=== PATIENT | female | born 1990 | race Native Hawaiian/Other Pacific Islander ===

== ENCOUNTER 2017-08-16 11:46 | Emergency (ER) | payer OTHER ==
[2017-08-16 12:06] VITALS: RESP 18; TEMP 97.2
--- NOTE | 2017-08-16 12:11 | C.PDOC ---
History Of Present Illness 27F c/o daily headaches for the last year. she says she was seen at a "free clinic" a couple months ago and rx tramadol which she takes along with ibuprofen several times per week, helps on a little. today on the way to work, about 3 hours ago, the headache became worse than before so she came in for eval. she denies any other pmh, denies drugs etoh. Time Seen by Provider: 08/16/17 12:08 Chief Complaint (Nursing): Headache Past Medical History Vital Signs: Last Vital Signs Temp 97.2 F L 08/16/17 12:05 Pulse 69 08/16/17 12:05 Resp 18 08/16/17 12:05 BP 98/72 L 08/16/17 12:05 Pulse Ox 100 08/16/17 13:50 Family History: States: Other Other Family History: no fh of sah or aneurysm Review Of Systems Constitutional: Negative for: Fever Eyes: Negative for: Vision Change Cardiovascular: Negative for: Chest Pain Gastrointestinal: Positive for: Nausea. Negative for: Vomiting Neurological: Positive for: Headache. Negative for: Weakness, Numbness, Altered Mental Status Psych: Positive for: Other ("stress at work") Physical Exam - Physical Exam Appears: Non-toxic Head: Atraumatic Eye(s): bilateral: PERRL, EOMI Nose: No Epistaxis Neck: Supple Cardiovascular: Rhythm Regular Respiratory: No Accessory Muscle Use Neurological/Psych: Oriented x3, Normal Cranial Nerves, No Cerebellar Signs, Normal Motor, Normal Sensation, Other (no focal deficits) Gait: Steady ED Course And Treatment O2 Sat by Pulse Oximetry: 100 Medical Decision Making Medical Decision Makinpm pt reports her headache is now completely resolved and she is comfortable w dc. follow up and return precautions advised. PROCEDURE: CT HEAD WITHOUT CONTRAST. HISTORY: headache COMPARISON: None available. TECHNIQUE: Axial computed tomography images were obtained through the head/brain without intravenous contrast. Radiation dose: Total exam DLP = 1187.18 mGy-cm. This CT exam was performed using one or more of the following dose reduction techniques: Automated exposure control, adjustment of the mA and/or kV according to patient size, and/or use of iterative reconstruction technique. FINDINGS: HEMORRHAGE: No intracranial hemorrhage. BRAIN: No focal areas of abnormal attenuation seen within the substance of the brain. No obvious parenchymal nor extra-axial mass or collection. No evidence of large acute infarct. VENTRICLES: No obstructive hydrocephalus however there is mild asymmetry of the lateral ventricles left-sided which is slightly larger than the right felt to represent a anatomic variation. . CALVARIUM: Unremarkable. PARANASAL SINUSES: Unremarkable as visualized. No significant inflammatory changes. MASTOID AIR CELLS: Unremarkable as visualized. No inflammatory changes. OTHER FINDINGS: None. IMPRESSION: No acute intracranial hemorrhage. Disposition - Disposition Disposition: HOME/ ROUTINE Disposition Time: 13:53 Condition: IMPROVED Forms: [facility] (Turkish) - Clinical Impression Clinical Impression: Headache
[2017-08-16] MEDS ORDERED: DiphenhydrAMINE 50 mg/ml Inj IVP STA (12:19)
[2017-08-16] MEDS ORDERED: DiphenhydrAMINE 50 mg/ml Inj ONE (13:02)
--- NOTE | 2017-08-16 13:48 | CT ---
PROCEDURE: CT HEAD WITHOUT CONTRAST. HISTORY: headache COMPARISON: None available. TECHNIQUE: Axial computed tomography images were obtained through the head/brain without intravenous contrast. Radiation dose: Total exam DLP = 1187.18 mGy-cm. This CT exam was performed using one or more of the following dose reduction techniques: Automated exposure control, adjustment of the mA and/or kV according to patient size, and/or use of iterative reconstruction technique. FINDINGS: HEMORRHAGE: No intracranial hemorrhage. BRAIN: No focal areas of abnormal attenuation seen within the substance of the brain. No obvious parenchymal nor extra-axial mass or collection. No evidence of large acute infarct. VENTRICLES: No obstructive hydrocephalus however there is mild asymmetry of the lateral ventricles left-sided which is slightly larger than the right felt to represent a anatomic variation. . CALVARIUM: Unremarkable. PARANASAL SINUSES: Unremarkable as visualized. No significant inflammatory changes. MASTOID AIR CELLS: Unremarkable as visualized. No inflammatory changes. OTHER FINDINGS: None. IMPRESSION: No acute intracranial hemorrhage.
[2017-08-16 14:04] VITALS: BP 95/61; PULSE 67; O2SAT 95
== END 2017-08-16 14:04 | disposition home or self-care (01) ==
LOC: C.ER 11:46
DX: R51 Headache (principal)
CPT/HCPCS: 70450; 96374; 96375; 99285; J0780; J1200